=== PATIENT | female | born 2000 | race American Indian/Alaskan Native ===

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

== ENCOUNTER 2020-09-18 11:48 | Emergency (ER) | payer MEDICAID, OTHER ==
[2020-09-18 12:53] VITALS: BP 112/64
--- NOTE | 2020-09-18 13:48 | Emergency Department Report ---
ED General Adult HPI - General Chief complaint: Urogenital-Female Stated complaint: VAGINAL DISCHARGE Time Seen by Provider: 09/18/20 13:31 Source: patient Mode of arrival: Ambulatory Limitations: No Limitations - History of Present Illness Initial comments: 19-year-old female patient with history of recurrent vaginal candidiasis presents to the emergency department complaints of vaginal discharge and burning with urination starting 1 week ago. Patient states she took 2 doses of Diflucan without relief. She is sexually active with one male partner. She does not use condoms. Last menstrual period was 4 days ago. Denies fever, chills, abdominal pain, pelvic pain, abnormal vaginal bleeding, rash, nausea, vomiting. Denies other complaints at this time. - Related Data Previous Rx's Medication Instructions Recorded Last Taken Type Tobramycin 0.3% [Tobrex] 1 drop OD QID 7 Days bottle 09/03/15 Unknown Rx HYDROcodone/APAP 5-325 [[place] 1 - 2 each PO Q6HR PRN #14 tablet 01/17/19 Unknown Rx 5/325] Ibuprofen [Motrin 800 MG tab] 800 mg PO Q8HR PRN #20 tablet 01/17/19 Unknown Rx Sulfamethoxazole/Trimethoprim 1 each PO BID #14 tablet 01/17/19 Unknown Rx [Bactrim DS TAB] Doxycycline Hyclate 100 mg PO BID 7 Days tablet. 09/18/20 Unknown Rx Valacyclovir HCl [Valacyclovir] 1,000 mg PO BID 10 Days tablet 09/18/20 Unknown Rx metroNIDAZOLE [Flagyl] 500 mg PO Q12HR 14 Days tab 09/18/20 Unknown Rx Allergies Allergy/AdvReac Type Severity Reaction Status Date / Time azithromycin [From Zithromax] Allergy Swelling Verified 01/17/19 12:46 ED Review of Systems ROS: Stated complaint: VAGINAL DISCHARGE Other details as noted in HPI Other: GENERAL: Negative for fever, chills, weight change, anorexia, fatigue. ENT: Negative for ear pain, difficulty hearing, sore throat, nasal congestion, epistaxis. CARDIOVASCULAR: Negative for chest pain, palpitations, lower extremity swelling. PULMONARY: Negative for cough, dyspnea, wheezing, orthopnea, cyanosis. GASTROINTESTINAL: Negative for abdominal pain, nausea, vomiting, diarrhea, constipation. GENITOURINARY: Positive for vaginal discharge and dysuria. MUSCULOSKELETAL: Negative for joint pain, joint swelling, myalgias, back pain, neck pain. NEUROLOGICAL: Negative for headache, seizure, syncope, paresthesias, weakness. INTEGUMENTARY: Negative for erythema, rash, diaphoresis, laceration, ecchymosis. HEMATOLOGICAL: Negative for hemoptysis, hematemesis, hematochezia, hematuria. PSYCHIATRIC: Negative for hallucinations, suicidal ideation, homicidal ideation, anxiety, depression. ED Past Medical Hx - Past Medical History Previous Medical History?: No - Surgical History Past Surgical History?: No - Social History Smoking Status: Never Smoker Substance Use Type: None - Medications Home Medications: Home Medications Medication Instructions Recorded Confirmed Last Taken Type Tobramycin 0.3% [Tobrex] 1 drop OD QID 7 Days bottle 09/03/15 Unknown Rx HYDROcodone/APAP 5-325 [[place] 1 - 2 each PO Q6HR PRN #14 tablet 01/17/19 Unknown Rx 5/325] Ibuprofen [Motrin 800 MG tab] 800 mg PO Q8HR PRN #20 tablet 01/17/19 Unknown Rx Sulfamethoxazole/Trimethoprim 1 each PO BID #14 tablet 01/17/19 Unknown Rx [Bactrim DS TAB] Doxycycline Hyclate 100 mg PO BID 7 Days tablet. 09/18/20 Unknown Rx Valacyclovir HCl [Valacyclovir] 1,000 mg PO BID 10 Days tablet 09/18/20 Unknown Rx metroNIDAZOLE [Flagyl] 500 mg PO Q12HR 14 Days tab 09/18/20 Unknown Rx ED Physical Exam - General Limitations: No Limitations - Other Other exam information: General: Awake and alert. No acute distress. Head: Atraumatic, normocephalic. Eyes: EOMI. Pupils are equal and round. Normal sclera and conjunctiva. ENT: Oral mucosa is moist. Normal pharyngeal exam. Neck: Supple. No lymphadenopathy. Pulmonary: No respiratory distress. Clear to auscultation bilaterally. Cardiac: Regular rate and rhythm. Pulses are palpable and equal bilaterally. No lower extremity cyanosis or edema. Skin: Warm and dry. No rashes. Abdomen: Soft, non-tender, non-protuberant. No guarding, rigidity, or rebound. Bowel sounds are normal. No organomegaly or masses noted. 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 External inspection demonstrates swelling of the labia bilaterally with multiple herpetic lesions and significant tenderness. Attempt to perform speculum examination was unsuccessful due to patient discomfort; politely refused repeat attempt. Yellow discharge present on Q-tip obtained for laboratory analysis. Back: Normal alignment. No CVA tenderness. Extremities: Symmetrical. Full range of motion intact. Neurological: Alert and oriented, appropriately interactive, no focal deficits. Psych: Cooperative. Appropriate mood and affect. Speech is evenly metered. Thoughts are logically construed. ED Course Vital Signs 09/18/20 12:52 Temperature 97.7 F Pulse Rate 97 H Respiratory 17 Rate Blood Pressure 112/64 [Right] O2 Sat by Pulse 98 Oximetry ED Medical Decision Making - Medical Decision Making Differential diagnosis including but not limited to: , urinary tract infection, pyelonephritis, pelvic inflammatory disease, tubo-ovarian abscess, salpingitis, sexually transmitted infection, bacterial vaginosis, vaginal candidiasis On reevaluation, patient remains stable. She is afebrile, well-hydrated, vital signs within normal range. test is negative. Wet prep is negative. History and exam findings concerning for herpes genitalis. Gonorrhea/chlamydia analysis is pending however since patient is unable to tolerate speculum exami nation in the setting of known STD exposure she will be treated empirically for pelvic inflammatory disease. Patient has no fever, no abdominal pain, and is tolerating oral intake without difficulty. No clinical indication for further diagnostic work-up on an emergent basis and/or hospital admission for IV antibiotics at this time. Patient will be discharged home with appropriate antibiotics as well as antiviral therapy for suspected herpes infection. Emphasized importance of following up with gynecology next week and refraining from all sexual activity until otherwise instructed by her supply chain coordinator. She has been instructed to notify her partner(s) of current condition in order for him/her to receive appropriate testing and treatment. Patient expressed understanding and is agreeable to plan of care. Disease transmission precautions discussed. Strict return precautions provided. History, exam, diagnostic testing, and current condition do not suggest worrisome pathology to warrant further testing, continued ED treatment, admission, or surgical evaluation at this point. Given the low probability of a significant medical illness, it would be more likely to result in harm than benefit to perform further testing at this stage. Discussed findings, presumptive diagnosis, need for follow-up and specific signs/symptoms that should prompt immediate return to the emergency department. Instructions were explained in detail to the patient in addition to giving written discharge information. Patient expressed understanding and was given the opportunity to ask questions, all of which were satisfactorily answered prior to discharge home. Critical care attestation.: If time is entered above; I have spent that time in minutes in the direct care of this critically ill patient, excluding procedure time. ED Disposition Clinical Impression: Female genital lesion, Concern about STD in female without diagnosis Disposition: TO HOME OR SELFCARE Is pt being admited?: No Does the pt Need Aspirin: No Condition: Stable Instructions: Genital Herpes Additional Instructions: Take medications with food as directed. Avoid prolonged sun exposure while taking Doxycycline. Do not consume any alcohol while taking Flagyl. Increase your dietary intake of probiotic rich foods while taking these medications. You must follow-up with gynecology next week for further evaluation. Call Sunday to schedule an appointment. See referral information below. You must notify your partner(s) of your suspected diagnosis. Your partner(s) must receive appropriate testing and treatment. Do not engage in sexual intercourse until otherwise instructed by you supply chain coordinator. Prescriptions: Doxycycline Hyclate 100 mg PO BID 7 Days tablet. metroNIDAZOLE [Flagyl] 500 mg PO Q12HR 14 Days tab Valacyclovir HCl [Valacyclovir] 1,000 mg PO BID 10 Days tablet Referrals: IRA PEREZ MD [Staff Physician] - 3-5 Days Forms: Work/School Release Form(ED) Time of Disposition: 15:23
[2020-09-18 14:53] LABS: Bacteria,Urine 1+ /HPF (Negative); Bilirubin,Urine NEG (Negative); Blood,Urine SM (Negative); Color,Urine Straw (Yellow); Protein,Urine <15 mg/dL mg/dL (Negative); Urobilinogen,Urine < 2.0 mg/dL (<2.0)
[2020-09-18 14:55] LABS: HCG Qualitative,Urine Negative (Negative)
[2020-09-18] MEDS ORDERED: LIDOCAINE-MPF (1%) 10 MG/1 ML VIAL 5 ML INFILTRATI ONE (15:15)
[2020-09-18] MEDS ORDERED: DOXYCYCLINE 100 MG CAP PO ONE (15:15)
[2020-09-18] MEDS ORDERED: metroNIDAZOLE 500 MG TAB PO ONE (15:15)
== END 2020-09-18 15:56 | disposition home or self-care (01) ==
LOC: ED 11:48
DX: N94.9 Unspecified condition associated with female genital organs and menstrual cycle (principal); Z20.2 Contact with and (suspected) exposure to infections with a predominantly sexual mode of transmission; Z79.1 Long term (current) use of non-steroidal anti-inflammatories (NSAID); Z79.899 Other long term (current) drug therapy; Z88.1 Allergy status to other antibiotic agents
CPT/HCPCS: 81001; 81025; 87086; 87210; 87591; 96372; 99283; J0696

== ENCOUNTER 2021-05-30 17:16 | Outpatient (CLI) | payer MEDICAID, OTHER ==
[2021-05-30] MEDS ORDERED: LACTATED RINGERS 1,000 ML IV SCH (18:30)
[2021-05-30 18:34] LABS: Basophils % (Auto) 0.2 % (0.0-1.8); Hematocrit 29.6 % (30.3-42.9); Hemoglobin 9.5 gm/dl (10.1-14.3); Lymphocytes # (Auto) 0.8 K/mm3 (1.2-5.4); Lymphocytes % (Auto) 9.7 % (13.4-35.0); Mean Corpuscular HGB Conc 32 % (30-34); Mean Corpuscular Volume 84 fl (79-97); Monocytes # (Auto) 1.2 K/mm3 (0.0-0.8); Monocytes % (Auto) 14.1 % (0.0-7.3); Platelet Count 217 K/mm3 (140-440); Red Blood Count 3.53 M/mm3 (3.65-5.03); Red Cell Distribution Width 13.6 % (13.2-15.2)
[2021-05-30 18:55] LABS: Blood Urea Nitrogen 3 mg/dL (7-17); Hemolysis Index 3
[2021-05-30] MEDS ORDERED: LACTATED RINGERS 500 ML IV ONE (19:22)
[2021-05-30 19:30] LABS: BUN/Creatinine Ratio 6
[2021-05-30 20:15] VITALS: BP 130/69
== END 2021-05-30 22:30 | disposition home or self-care (01) ==
LOC: TRG 17:16 → APU 17:17 → TRG 22:30
PROVIDERS: ATTEND Obstetrics & Gynecology
DX: O26.893 Other specified pregnancy related conditions, third trimester (principal); Z3A.35 35 weeks gestation of pregnancy
CPT/HCPCS: 36415; 80048; 85025; J7120

== ENCOUNTER 2021-06-23 10:52 | Outpatient (CLI) | payer MEDICAID ==
[2021-06-23 12:29] LABS: Hematocrit 32.5 % (30.3-42.9); Hemoglobin 10.2 gm/dl (10.1-14.3); Mean Corpuscular HGB Conc 32 % (30-34); Mean Corpuscular Volume 83 fl (79-97); Platelet Count 267 K/mm3 (140-440); Red Blood Count 3.92 M/mm3 (3.65-5.03); Red Cell Distribution Width 14.5 % (13.2-15.2)
[2021-06-23 12:33] VITALS: BP 133/63
[2021-06-23 12:34] LABS: Bacteria,Urine 1+ /HPF (Negative); Bilirubin,Urine NEG (Negative); Blood,Urine SM (Negative); Color,Urine Straw (Yellow); Mucus,Urine FEW /HPF; Protein,Urine <15 mg/dL mg/dL (Negative); Urobilinogen,Urine < 2.0 mg/dL (<2.0)
[2021-06-23 13:30] LABS: Alanine Aminotransferase 11 units/L (7-56); Uric Acid 6.4 mg/dL (3.5-7.6)
--- NOTE | 2021-06-23 13:45 | Ultrasound Report ---
ULTRASOUND OBSTETRIC LIMITED ULTRASOUND BIOPHYSICAL PROFILE INDICATION / CLINICAL INFORMATION: well. COMPARISON: None available. FINDINGS: BREATHING MOVEMENT = 2 GROSS BODY MOVEMENT = 2 TONE = 2 QUALITATIVE AMNIOTIC FLUID VOLUME = 2 TOTAL BIOPHYSICAL SCORE = 8/8 HEART RATE (beats per minute): 141 AMNIOTIC FLUID INDEX (cm) = 14.6 (normal = 7-24 cm) PRESENTATION: Cephalic. ADDITIONAL FINDINGS: None. IMPRESSION: 1. Biophysical Score = 8/8 Signer Name: Jose Johnson MD Signed: 06/23/2021 1:40 PM Workstation Name: [email or web address]
== END 2021-06-23 14:41 | disposition home or self-care (01) ==
LOC: TRG 10:52 → APU 10:54 → TRG 14:41
PROVIDERS: ATTEND Obstetrics & Gynecology
DX: O16.3 Unspecified maternal hypertension, third trimester (principal); Z3A.39 39 weeks gestation of pregnancy
CPT/HCPCS: 36415; 59025; 76815; 76819; 81001; 82565; 83615; 84450; 84460; 84550; 85027; 96360